=== PATIENT | female | born 1985 | race African-American/Black ===

== ENCOUNTER 2017-03-02 13:56 | Emergency (ER) | payer MEDICAID ==
[~2017-03-02] VITALS: Ht 157.5 cm; Wt 116.0 kg
[2017-03-02 13:59] VITALS: BP 126/77
[2017-03-02 15:52] LABS: CLARITY URINE CLEAR (CLEAR); COLOR URINE YELLOW (YELLOW); GLUCOSE URINE NEGATIVE (NEGATIVE); KETONES URINE NEGATIVE (NEGATIVE); LEUKOCYTE ESTERASE URINE NEGATIVE (NEGATIVE); NITRITE URINE NEGATIVE (NEGATIVE); OCCULT BLOOD URINE TRACE (NEGATIVE); PROTEIN URINE NEGATIVE (NEGATIVE); SPECIFIC GRAVITY URINE 1.019 (1.005-1.030); UROBILINOGEN URINE 0.2 E.U./dL (0.2-1.0)
== END 2017-03-02 16:00 | disposition home or self-care (01) ==
LOC: ER 14:09
DX: Z48.817 Encounter for surgical aftercare following surgery on the skin and subcutaneous tissue (principal)
CPT/HCPCS: 81001; 99283; Z7610